=== PATIENT | male | born 1995 | race Caucasian/White ===

== ENCOUNTER 2017-10-18 04:28 | Emergency (ER) | payer OTHER ==
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
== END 2017-10-18 05:20 | disposition home or self-care (01) ==
LOC: MW.ED 04:28
DX: Z77.21 Contact with and (suspected) exposure to potentially hazardous body fluids (principal)
CPT/HCPCS: 36415; 86706; 86803; 87389; 99282; 99283

== ENCOUNTER 2017-10-20 15:58 | Emergency (ER) | payer OTHER ==
[2017-10-20] MEDS ORDERED: Lidocaine 2% Viscous Solution 100 ML Bottle PO ONE (15:59)
[2017-10-20] MEDS ORDERED: Lidocaine 2% Viscous Solution 15 ML Cup PO PRN (16:04)
--- NOTE | 2017-10-20 16:04 | EDM.PDOC ---
ED HPI GENERAL MEDICAL PROBLEM - General Chief Complaint: ENT Problem Stated Complaint: SPOKE W/ NURSE Time Seen by Provider: 10/20/17 15:58 - History of Present Illness INITIAL COMMENTS - FREE TEXT/NARRATIVE: HISTORY AND PHYSICAL: History of present illness: The patient is a 21-year-old male with no past medical history who presents with 2 days of sore throat difficulty swallowing because of the discomfort and generalized body aches and malaise. 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 Patient has not passed out or blacked out but does feel lightheaded. He's had no abdominal pain vomiting or diarrhea and has been trying to push fluids. He has not had a fever yet. He feels like his glands are swollen in his neck but he does not have a headache. He has no chest pain or shortness of breath no cough. The patient has a history of a tonsillectomy. Review of systems: As per history of present illness and below otherwise all systems reviewed and negative. Past medical history: As per history of present illness and as reviewed below otherwise noncontributory. Surgical history: As per history of present illness and as reviewed below otherwise noncontributory. Social history: No reported history of drug or alcohol abuse. Family history: As per history of present illness and as reviewed below otherwise noncontributory. Physical exam: General: Well-developed well-nourished man who is nontoxic and vital signs have been reviewed by me HEENT: Atraumatic, normocephalic, pupils reactive, negative for conjunctival pallor or scleral icterus, mucous membranes moist, throat clear of exudates but there is some posterior oropharyngeal erythema and the crypts, there is some shoddy anterior cervical adenopathy without nuchal rigidity and no posterior adenopathy, no wheezing or stridor, neck supple, nontender, trachea midline. TMs were difficult to see bilaterally due to impacted cerumen Lungs: Clear to auscultation, breath sounds equal bilaterally, chest nontender. Heart: S1S2, regular rate and rhythm no overt murmurs Abdomen: Soft, nondistended, nontender. NABS Pelvis: Deferred Genitourinary: Deferred. Rectal: Deferred. Extremities: Atraumatic, full range of motion without defects or deficits Neurovascular unremarkable. Neuro: Awake, alert, oriented. Cranial nerves II through XII unremarkable. Cerebellum unremarkable. Motor and sensory unremarkable throughout. Exam nonfocal. Diagnostics: Rapid strep Monospot Therapeutics: Viscous lidocaine Impression: Pharyngitis Definitive disposition and diagnosis as appropriate pending reevaluation and review of above. throat Pain Score (Numeric/FACES): 7 - Related Data Allergies Allergy/AdvReac Type Severity Reaction Status Date / Time bee venom protein (honey bee) Allergy Rash Verified 10/20/17 16:01 Penicillins Allergy Rash Verified 10/20/17 16:01 Home Meds: Home Meds . [No Known Home Meds] 10/20/17 [History] Past Medical History - Past Health History Medical/Surgical History: Denies Medical/Surgical History ED ROS GENERAL - Review of Systems Review Of Systems: ROS reveals no pertinent complaints other than HPI. ED EXAM, GENERAL - Physical Exam Exam: See Below (See dictation) Course - Vital Signs Last Recorded V/S: Last Vital Signs Temp 36.6 C 10/20/17 16:01 Pulse 96 10/20/17 16:01 Resp 20 10/20/17 16:01 BP 139/73 10/20/17 16:01 Pulse Ox 95 10/20/17 16:01 - Orders/Labs/Meds Orders: Active Orders 24 hr Category Date Time Status CULTURE STREP A CONFIRMATION [] Stat Lab 10/20/17 15:53 Results STREP SCRN A RAPID W CULT CONF [] Stat Lab 10/20/17 15:53 Results Lidocaine 2% [Xylocaine 2% Viscous] Med 10/20/17 16:04 Active 15 ml PO ASDIRECTED PRN Medication Orders Lidocaine HCl (Xylocaine 2% Viscous) 15 ml PO ASDIRECTED PRN PRN Reason: Throat Pain Last Admin: 10/20/17 16:09 Dose: 15 ml Labs: Laboratory Tests 10/20/17 Range/Units 16:23 Monoscreen NEGATIVE (NEG) Meds: Medications Generic Name Dose Route Start Last Admin Trade Name Freq PRN Reason Stop Dose Admin Lidocaine HCl 15 ml 10/20/17 16:04 10/20/17 16:09 Xylocaine 2% Viscous PO 15 ml ASDIRECTED PRN Administration Throat Pain Departure - Departure Time of Disposition: 16:58 Disposition: Home, Self-Care 01 Condition: Good Clinical Impression: Pharyngitis Qualifiers: Pharyngitis/tonsillitis etiology: unspecified etiology Qualified Code(s): J02.9 - Acute pharyngitis, unspecified - Discharge Information Referrals: PCP,None [Primary Care Provider] - Forms: ED Department Discharge Additional Instructions: The following information is given to patients seen in the emergency department who are being discharged to home. This information is to outline your options for follow-up care. We provide all patients seen in our emergency department with a follow-up referral. The need for follow-up, as well as the timing and circumstances, are variable depending upon the specifics of your emergency department visit. If you don't have a primary care physician on staff, we will provide you with a referral. We always advise you to contact your personal physician following an emergency department visit to inform them of the circumstance of the visit and for follow-up with them and/or the need for any referrals to a consulting specialist. The emergency department will also refer you to a specialist when appropriate. This referral assures that you have the opportunity for followup care with a specialist. All of these measure are taken in an effort to provide you with optimal care, which includes your followup. Under all circumstances we always encourage you to contact your private physician who remains a resource for coordinating your care. When calling for followup care, please make the office aware that this follow-up is from your recent emergency room visit. If for any reason you are refused follow-up, please contact the [facility] emergency department at and ask to speak to the emergency department charge nurse. [facility] Primary care- [place] [id number] Please push hydration and use prescriptions as directed. Use [id number] Tylenol and ibuprofen for pain and fevers and call and schedule a follow-up appointment with your provider in the clinic or one of ours for reevaluation and further care. Return to ER as needed and as discussed - My Orders Last 24 Hours: My Active Orders 10/20/17 15:53 CULTURE STREP A CONFIRMATION [RM] Stat STREP SCRN A RAPID W CULT CONF [RM] Stat 10/20/17 16:04 Lidocaine 2% [Xylocaine 2% Viscous] 15 ml PO ASDIRECTED PRN - Assessment/Plan Last 24 Hours: My Active Orders 10/20/17 15:53 CULTURE STREP A CONFIRMATION [] Stat STREP SCRN A RAPID W CULT CONF [] Stat 10/20/17 16:04 Lidocaine 2% [Xylocaine 2% Viscous] 15 ml PO ASDIRECTED PRN
== END 2017-10-20 17:09 | disposition home or self-care (01) ==
LOC: MW.ED 15:58
DX: J02.9 Acute pharyngitis, unspecified (principal); Z91.030 Bee allergy status; Z88.0 Allergy status to penicillin
CPT/HCPCS: 36415; 86308; 87081; 87880; 99283; A9270; 99282

== ENCOUNTER 2018-08-11 08:26 | Emergency (ER) | payer OTHER ==
--- NOTE | 2018-08-11 08:41 | EDM.PDOC ---
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 He denies numbness weakness incontinence or retention of bowel or bladder denies other concern Review of systems: As per history of present illness and below otherwise all systems reviewed and negative. Past medical history: As per history of present illness and as reviewed below otherwise noncontributory. Surgical history: As per history of present illness and as reviewed below otherwise noncontributory. Social history: No reported history of drug or alcohol abuse. Family history: As per history of present illness and as reviewed below otherwise noncontributory. Physical exam: HEENT: Atraumatic, normocephalic, pupils reactive, negative for conjunctival pallor or scleral icterus, mucous membranes moist, throat clear, neck supple, nontender, trachea midline. Lungs: Clear to auscultation, breath sounds equal bilaterally, chest nontender. Heart: S1S2, regular, negative for clicks, rubs, or JVD. Abdomen: Soft, nondistended, nontender. Negative for masses or hepatosplenomegaly. Negative for costovertebral tenderness. Pelvis: Stable nontender. Genitourinary: Deferred. Rectal: Deferred. Extremities: Atraumatic, negative for cords or calf pain. Neurovascular unremarkable. Neuro: Awake, alert, oriented. Cranial nerves II through XII unremarkable. Cerebellum unremarkable. Motor and sensory unremarkable throughout. Exam nonfocal. Back: Patient has tenderness in the paravertebral region at the level of the lower thoracic and upper lumbar spine on the left no vertebral body or point tenderness motor and sensory are normal Diagnostics: None Therapeutics: Toradol 60 mg IM Impression: #1 muscle skeletal back pain Definitive disposition and diagnosis as appropriate pending reevaluation and review of above. Left back pain Pain Score (Numeric/FACES): 5 - Related Data Allergies Allergy/AdvReac Type Severity Reaction Status Date / Time bee venom protein (honey bee) Allergy Rash Verified 08/11/18 08:35 Penicillins Allergy Rash Verified 08/11/18 08:35 Home Meds: Home Meds . [No Known Home Meds] 10/20/17 [History] Past Medical History - Past Health History Medical/Surgical History: Denies Medical/Surgical History - Infectious Disease History Infectious Disease History: Reports: None Social & Family History - Family History Family Medical History: Noncontributory ED ROS GENERAL - Review of Systems Review Of Systems: ROS reveals no pertinent complaints other than HPI. ED EXAM, GENERAL - Physical Exam Exam: See Below (See dictation) Course - Vital Signs Last Recorded V/S: Last Vital Signs Temp 36.1 C 08/11/18 08:35 Pulse 89 08/11/18 08:35 Resp 16 08/11/18 08:35 BP 128/79 08/11/18 08:35 Pulse Ox 97 08/11/18 08:35 Departure - Departure Time of Disposition: 08:40 Disposition: Home, Self-Care 01 Condition: Good Clinical Impression: Back pain - Discharge Information Referrals: PCP,None [Primary Care Provider] - Additional Instructions: The following information is given to patients seen in the emergency department who are being discharged to home. This information is to outline your options for follow-up care. We provide all patients seen in our emergency department with a follow-up referral. The need for follow-up, as well as the timing and circumstances, are variable depending upon the specifics of your emergency department visit. If you don't have a primary care physician on staff, we will provide you with a referral. We always advise you to contact your personal physician following an emergency department visit to inform them of the circumstance of the visit and for follow-up with them and/or the need for any referrals to a consulting specialist. The emergency department will also refer you to a specialist when appropriate. This referral assures that you have the opportunity for followup care with a specialist. All of these measure are taken in an effort to provide you with optimal care, which includes your followup. Under all circumstances we always encourage you to contact your private physician who remains a resource for coordinating your care. When calling for followup care, please make the office aware that this follow-up is from your recent emergency room visit. If for any reason you are refused follow-up, please contact the [facility] emergency department at and asked to speak to the emergency department charge nurse. Diclofenac Flexeril as prescribed follow-up occupational medicine all 4-48 hours return as needed as discussed
[2018-08-11] MEDS ORDERED: Ketorolac 60 MG/2 ML SDV IM ONE (08:42)
== END 2018-08-11 09:08 | disposition home or self-care (01) ==
LOC: MW.ED 08:26
DX: M54.5 Low back pain (principal); M54.6 Pain in thoracic spine; Z88.0 Allergy status to penicillin; Z91.030 Bee allergy status
CPT/HCPCS: 96372; 99283; J1885; 99282

== ENCOUNTER 2019-09-28 20:09 | Emergency (ER) | payer OTHER ==
--- NOTE | 2019-09-28 20:37 | EDM.PDOC ---
ED HPI GENERAL MEDICAL PROBLEM - General Chief Complaint: Fever Stated Complaint: MEDICATION Time Seen by Provider: 09/28/19 20:10 Source of Information: Reports: Patient History Limitations: Reports: No Limitations - History of Present Illness INITIAL COMMENTS - FREE TEXT/NARRATIVE: HISTORY AND PHYSICAL: History of present illness: Patient is a 23-year-old male who presents to the emergency room with complaints of fever and sore throat. Patient was sent home today from work due to his symptoms. He is concerned as he was exposed to COVID-19 through his occupation a week ago. Patient denies any change in vision, syncope or near syncope. Denies any chest pain, back pain, shortness of breath or cough. Denies any abdominal pain, nausea, vomiting, diarrhea, constipation or dysuria. Has not noted any blood in urine or stool. Patient has been eating and drinking appropriately. Review of systems: As per history of present illness and below otherwise all systems reviewed and negative. Past medical history: As per history of present illness and as reviewed below otherwise noncontributory. Surgical history: As per history of present illness and as reviewed below otherwise noncontributory. Social history: See social history for further information Family history: As per history of present illness and as reviewed below otherwise noncontributory. Physical exam: General: Well-developed and well-nourished 23-year-old male. Alert and oriented. Nontoxic-appearing and in no acute distress. HEENT: Atraumatic, normocephalic, pupils equal and reactive bilaterally, negative for conjunctival pallor or scleral icterus, mucous membranes moist, TMs normal bilaterally, throat erythematous with exudate (NO pillar shifting or fullness), neck supple, nontender, trachea midline. No drooling or trismus noted. No meningeal signs. No hot potato voice noted. Lungs: Clear to auscultation, breath sounds equal bilaterally, chest nontender. Heart: S1S2, regular rate and rhythm without overt murmur Abdomen: Soft, nondistended, nontender. Skin: Intact, warm, dry. No lesions or rashes noted. Extremities: Atraumatic, moves all extremities per self without difficulty or deficits, negative for cords or calf pain. Neurovascular unremarkable. Neuro: Awake, alert, oriented. Cranial nerves II through XII unremarkable. Cerebellum unremarkable. Motor and sensory unremarkable throughout. Exam nonfocal. Notes: Negative COVID screening. We will treat the pharyngitis with antibiotics. He has had a few episodes of nausea and vomiting, will give Phenergan with codeine. Supportive care measures were reviewed and discussed. Voices understanding and is agreeable to plan of care. Denies any further questions or concerns at this time. Diagnostics: COVID-19 Therapeutics: None Prescription: Phenergan w/ Codeine, Keflex Impression: Pharyngitis Plan: 1. Your COVID-19 screening is negative. Take your medication as directed for strep throat. Good handwashing and contact precautions as we discussed. 2. Warm Salt water gargles (rinse and spit) 3-4 x daily. Please get a new tooth brush after completion of your medication 3. Tylenol and or ibuprofen as needed for pain management. Phenergan with codeine as needed. This medication will cause drowsiness so do not take it while driving or needing to be functioning outside of the house. 4. Follow-up with your primary care provider in the next 1-2 days. Return to the ED as needed and as discussed. If your symptoms should worsen, new symptoms develop or any of the signs and symptoms we discussed should arise please return to the emergency room or call 911 (if needed). Definitive disposition and diagnosis as appropriate pending reevaluation and review of above. throat Pain Score (Numeric/FACES): 3 - Related Data Allergies Allergy/AdvReac Type Severity Reaction Status Date / Time bee venom protein (honey bee) Allergy Rash Verified 09/28/19 20:22 Penicillins Allergy Rash Verified 09/28/19 20:22 Home Meds: Home Meds . [No Known Home Meds] 10/20/17 [History] Past Medical History - Past Health History Medical/Surgical History: Denies Medical/Surgical History - Infectious Disease History Infectious Disease History: Reports: None - Past Surgical History HEENT Surgical History: Reports: Adenoidectomy, Tonsillectomy Other Musculoskeletal Surgeries/Procedures:: right knee surgery Social & Family History - Family History Family Medical History: Noncontributory - Caffeine Use Caffeine Use: Reports: None ED ROS ENT - Review of Systems Review Of Systems: Comprehensive ROS is negative, except as noted in HPI. ED EXAM, ENT - Physical Exam Exam: See Below (See dictation) Course - Vital Signs Last Recorded V/S: Last Vital Signs Temp 97.0 F 09/28/19 20:22 Pulse 94 09/28/19 21:11 Resp 18 09/28/19 21:11 BP 125/77 09/28/19 21:11 Pulse Ox 98 09/28/19 21:11 - Orders/Labs/Meds Labs: Laboratory Tests 09/28/19 Range/Units 20:42 COVID-19 ([facility]) NEGATIVE (NEGATIVE) Departure - Departure Time of Disposition: 21:10 Disposition: Home, Self-Care 01 Clinical Impression: Pharyngitis Qualifiers: Pharyngitis/tonsillitis etiology: unspecified etiology Qualified Code(s): J02.9 - Acute pharyngitis, unspecified - Discharge Information Instructions: Pharyngitis, [id number] Referrals: PCP,None [Primary Care Provider] - Forms: ED Department Discharge Additional Instructions: The following information is given to patients seen in the emergency department who are being discharged to home. This information is to outline your options for follow-up care. We provide all patients seen in our emergency department with a follow-up referral. The need for follow-up, as well as the timing and circumstances, are variable depending upon the specifics of your emergency department visit. If you don't have a primary care physician on staff, we will provide you with a referral. We always advise you to contact your personal physician following an emergency department visit to inform them of the circumstance of the visit and for follow-up with them and/or the need for any referrals to a consulting specialist. The emergency department will also refer you to a specialist when appropriate. This referral assures that you have the opportunity for follow-up care with a specialist. All of these measure are taken in an effort to provide you with optimal care, which includes your follow-up. Under all circumstances we always encourage you to contact your private physician who remains a resource for coordinating your care. When calling for follow-up care, please make the office aware that this follow-up is from your recent emergency room visit. If for any reason you are refused follow-up, please contact the [facility] Emergency Department at and asked to speak to the emergency department charge nurse. [facility] [address] [place] [id number] [address] [address] Thank you for choosing the [facility] emergency department in [place] for your medical needs today. It was a pleasure caring for you. Today you were seen in the emergency department for sore throat and COVID testing. 1. Your COVID-19 screening is negative. Take your medication as directed for strep throat. Good handwashing and contact precautions as we discussed. 2. Warm Salt water gargles (rinse and spit) 3-4 x daily. Please get a new tooth brush after completion of your medication 3. Tylenol and or ibuprofen as needed for pain management. Phenergan with codeine as needed. This medication will cause drowsiness so do not take it while driving or needing to be functioning outside of the house. 4. Follow-up with your primary care provider in the next 1-2 days. Return to the ED as needed and as discussed. If your symptoms should worsen, new symptoms develop or any of the signs and symptoms we discussed should arise please return to the emergency room or call 911 (if needed). Sepsis Event Note (ED) - Focused Exam Vital Signs: Vital Signs Temp Pulse Resp BP Pulse Ox 09/28/19 21:11 94 18 125/77 98 09/28/19 20:22 97.0 F 97 20 129/73 98
== END 2019-09-28 21:21 | disposition home or self-care (01) ==
LOC: MW.ED 20:09
DX: J02.9 Acute pharyngitis, unspecified (principal); Z20.828 Contact with and (suspected) exposure to other viral communicable diseases; Z88.0 Allergy status to penicillin; Z91.030 Bee allergy status; Z90.49 Acquired absence of other specified parts of digestive tract; Z98.890 Other specified postprocedural states
CPT/HCPCS: 99283; U0002

== ENCOUNTER 2025-01-06 11:31 | Emergency (ER) | payer OTHER | END 2025-01-06 12:46 | disposition home or self-care (01) | LOC: MW.ED 11:31 | DX: J02.9 Acute pharyngitis, unspecified (principal); R03.0 Elevated blood-pressure reading, without diagnosis of hypertension; Z88.0 Allergy status to penicillin; Z91.030 Bee allergy status; Z79.899 Other long term (current) drug therapy | CPT/HCPCS: 87651; 99284; J8540; 99283 ==